=== PATIENT | male | born 1965 | race African-American/Black ===

== ENCOUNTER 2021-02-15 14:16 | Emergency (ER) | payer OTHER ==
[~2021-02-15] VITALS: Ht 195.6 cm; Wt 106.6 kg
[2021-02-15 14:18] VITALS: BP 157/113
[2021-02-15] MEDS ORDERED: DOXYCYCLINE 10100 MG PO (14:25)
== END 2021-02-15 14:31 | disposition home or self-care (01) ==
LOC: ER 14:16
DX: L03.211 Cellulitis of face (principal)

== ENCOUNTER 2021-05-08 06:09 | Emergency (ER) | payer OTHER ==
[~2021-05-08] VITALS: Ht 193 cm; Wt 108.9 kg
[~2021-05-08 06:09] MED LIST: DOXYCYCLINE 10100 MG PO
[2021-05-08 06:51] LABS: HEMATOCRIT 44.7 % (42.0-52.0); MCH 30.3 pg (26.0-34.0); MCHC 33.5 g/dL (28.0-37.0); MCV 90.4 fL (80.0-100.0); PLATELET COUNT 259 thou/uL (150-400); RBC 4.95 mil/uL (4.50-6.00); RDW 12.8 % (10.5-14.5); WBC 8.3 thou/uL (4.0-11.0)
[2021-05-08 06:52] LABS: CALCIUM 9.1 mg/dL (8.5-10.1); CREATININE 1.1 mg/dL (0.7-1.3)
[2021-05-08 07:08] LABS: ALBUMIN 3.8 g/dL (3.4-5.0); MAGNESIUM 2.4 mg/dL (1.8-2.4); TOTAL BILIRUBIN 0.7 mg/dL (0.2-1.0)
[2021-05-08 07:09] LABS: POTASSIUM 4.7 mmol/L (3.5-5.1)
--- NOTE | 2021-05-08 07:24 | EKG ---
[address] [place] [employer] [place] [address] ELECTROCARDIOGRAM REPORT Name: JT PARKINSON Bi Room #: [id number] Admission: 05/08/21 Attend Phys: Discharge: Date of : 61 Report #: [id number] [facility] ED Test Date: 2021-05-08 Test Time: 06:54:30 Pat Name: JT PARKINSON Department: Room: Gender: M Instructor Decorating: LEIGHA : 1965 Requested By: Jose Doherty Order Number: [id number] MD: Kavon Villanueva Measurements Intervals [place] Rate: 75 P: 37 UT: 182 QRS: 20 QRSD: 90 T: 19 QT: 374 QTc: 418 Interpretive Statements Sinus rhythm Borderline ST elevation, lateral leads Baseline wander in lead(s) V1 No previous ECG available for comparison Electronically Signed On 05-08-2021 7:24:28 [employer]LOAT BUIL[employer] by Kavon Villanueva [email or web address] <ELECTRONICALLY SIGNED> By: Kavon Villanueva MD, [facility] 05/08/21 0724 [id number] Kavon Villanueva MD, FACC /EPI
[2021-05-08] MEDS ORDERED: ZOFRAN ODT4 MG PO (08:13)
[2021-05-08 08:44] VITALS: BP 148/108
[2021-05-08 09:49] LABS: ABSOLUTE NEUTROPHILS 2.9 thou/uL (1.4-8.2); ATYPICAL LYMPHS 4 %; NUCLEATED RBCS 1 /100WBC; PLATELET ESTIMATE NORMAL
== END 2021-05-08 08:45 | disposition home or self-care (01) ==
LOC: ER 06:09
PROVIDERS: Emergency Medicine
DX: R10.9 Unspecified abdominal pain (principal); Z20.822 Contact with and (suspected) exposure to COVID-19; R11.2 Nausea with vomiting, unspecified